=== PATIENT | female | born 1980 | race African-American/Black ===

== ENCOUNTER 2021-03-18 22:48 | Emergency (ER) | payer MEDICAID ==
[~2021-03-18] VITALS: Ht 172.7 cm; Wt 82.0 kg
[~2021-03-18 22:48] MED LIST: CARI250T PO; HYDR-4009 PO; NIFE-32 PO
[2021-03-18 23:44] LABS: BASOPHILS % 0.9 % (0.0-2.0); EOSINOPHILS % 4.4 % (0.0-5.0); HEMATOCRIT. 35.7 % (36.0-48.0); HEMOGLOBIN. 11.7 g/dL (12.0-16.0); LYMPHOCYTES % 27.6 % (20.0-50.0); MEAN CORPUSCULAR HEMOGLOBIN 25.7 pg (28.0-32.0); MEAN CORPUSCULAR VOLUME 78.5 fL (81.0-99.0); MEAN PLATELET VOLUME 8.9 fl (7.4-10.4); MONOCYTES % 6.2 % (2.0-8.0); NEUTROPHILS % 60.9 % (40.0-76.0); PLATELET 295 x1000/uL (130-400); RED BLOOD CELL COUNT 4.54 mill/uL (4.2-5.4)
[2021-03-18 23:52] LABS: CHLORIDE 107 mEq/L (98-107)
[2021-03-19] MEDS ORDERED: KETOROLAC 60MG/2ML VIAL IM ONE (02:30)
[2021-03-19 02:40] VITALS: BP 132/69
== END 2021-03-19 02:55 | disposition home or self-care (01) ==
LOC: ER 22:48
DX: D28.2 Benign neoplasm of uterine tubes and ligaments (principal); E11.9 Type 2 diabetes mellitus without complications; I10 Essential (primary) hypertension; J45.909 Unspecified asthma, uncomplicated; Z88.9 Allergy status to unspecified drugs, medicaments and biological substances
CPT/HCPCS: 36415; 76856; 80053; 81025; 85025; 86850; 86900; 86901; 93005; 96372; 99285; J1885

== ENCOUNTER 2021-09-16 18:42 | Emergency (ER) | payer MEDICAID ==
[~2021-09-16] VITALS: Ht 172.7 cm; Wt 87.0 kg
[2021-09-16] MEDS ORDERED: IBUPROFEN 600MG TABLET PO ONE (22:00)
[2021-09-16 22:27] VITALS: BP 160/100
== END 2021-09-16 22:30 | disposition home or self-care (01) ==
LOC: ER 18:42
DX: B34.9 Viral infection, unspecified (principal); I51.7 Cardiomegaly; J45.909 Unspecified asthma, uncomplicated; I10 Essential (primary) hypertension; E11.9 Type 2 diabetes mellitus without complications; Z88.9 Allergy status to unspecified drugs, medicaments and biological substances; Z20.822 Contact with and (suspected) exposure to COVID-19
CPT/HCPCS: 71045; 87426; 93005; 99285

== ENCOUNTER 2024-10-21 21:55 | Emergency (ER) | payer MEDICAID ==
[~2024-10-21] VITALS: Ht 170.2 cm; Wt 83.0 kg
[2024-10-21 22:26] VITALS: O2SAT 100
[2024-10-21 22:32] VITALS: TEMP 36.8
[2024-10-21] MEDS: ACETAMINOPHEN 650MG/20.3ML UDC PO ONE (23:25)
[2024-10-22] MEDS ORDERED: BENZ100C86 MT (00:48)
[2024-10-22 01:03] VITALS: BP 169/89; PULSE 90; RESP 16; O2SAT 100
== END 2024-10-22 01:05 | disposition home or self-care (01) ==
LOC: ER 21:55
DX: J02.9 Acute pharyngitis, unspecified (principal); B97.89 Other viral agents as the cause of diseases classified elsewhere; I10 Essential (primary) hypertension; E11.9 Type 2 diabetes mellitus without complications; J45.909 Unspecified asthma, uncomplicated; Z90.710 Acquired absence of both cervix and uterus; Z79.899 Other long term (current) drug therapy; I48.91 Unspecified atrial fibrillation; Z20.822 Contact with and (suspected) exposure to COVID-19; Z98.890 Other specified postprocedural states
CPT/HCPCS: 87070; 87426; 87430; 99283